=== PATIENT | female | born 1990 | race Hispanic/Latino ===

== ENCOUNTER 2018-02-25 21:34 | Emergency (ER) | payer OTHER ==
[2018-02-25 21:54] VITALS: BP 121/74; PULSE 52; RESP 14; TEMP 98; O2SAT 100
[2018-02-25 22:45] LABS: BASO # 0.1 K/uL (0.0-0.2); BASO % 0.7 % (0.0-2.0); EOS # 0.1 K/uL (0.0-0.7); HEMOGLOBIN 12.1 g/dL (12.0-16.0); LYMPH # 3.2 K/uL (1.0-4.3); LYMPH % 31.6 % (20.0-40.0); MEAN CORPUSCULAR HEMOGLOBIN 29.9 pg (27.0-31.0); MEAN CORPUSCULAR HGB CONC 33.2 g/dL (33.0-37.0); MEAN PLATELET VOLUME 9.8 fl (7.2-11.7); MONO # 0.8 K/uL (0.0-0.8); MONO % 7.8 % (0.0-10.0); NEUT % 58.9 % (50.0-75.0); NRBC % 0.1 % (0.0-0.0); RBC 4.04 Mil/uL (3.80-5.20); RED CELL DISTRIBUTION WIDTH 12.6 % (11.5-14.5); WHITE BLOOD COUNT 10.2 K/uL (4.8-10.8)
--- NOTE | 2018-02-25 22:55 | ED PDOC ---
HPI: Headache Time Seen by Provider: 02/25/18 22:06 Chief Complaint (Nursing): Headache Chief Complaint (Provider): Headache History Per: Patient History/Exam Limitations: no limitations Onset/Duration Of Symptoms: Days (x4) Current Symptoms Are (Timing): Still Present Additional Complaint(s): 27 y/o female with a PMHx of Hypothyroidism presents to the ED complaining of headache, onset four days. Patient also reports an acute sense of dizziness one hour ago after eating. Patient is also complaining of numbness to the left arm and leg. Denies trough walking, taking and chewing. PMD: Wai Past Medical History Reviewed: Historical Data, Nursing Documentation, Vital Signs Vital Signs: Last Vital Signs Temp 98 F 02/25/18 21:50 Pulse 52 L 02/25/18 21:50 Resp 14 02/25/18 21:50 BP 121/74 02/25/18 21:50 Pulse Ox 100 02/25/18 21:50 - Medical History PMH: Hypothyroidism - Surgical History Surgical History: Tonsillectomy - Family History Family History: States: Other Other Family History: Lupus (mother) - Home Medications Home Medications: Ambulatory Orders Medication Instructions Recorded Levothyroxine [Synthroid] 02/25/18 - Allergies Allergies/Adverse Reactions: Allergies Allergy/AdvReac Type Severity Reaction Status Date / Time No Known Allergies Allergy Verified 02/25/18 21:50 Review of Systems ROS Statement: Except As Marked, All Systems Reviewed And Found Negative Neurological: Positive for: Numbness (to the left arm and leg), Headache, Dizziness Physical Exam - Reviewed Nursing Documentation Reviewed: Yes Vital Signs Reviewed: Yes - Physical Exam Appears: Positive for: No Acute Distress Head Exam: Positive for: ATRAUMATIC, NORMOCEPHALIC Skin: Positive for: Normal Color, Warm, Dry Eye Exam: Positive for: Normal appearance, EOMI, PERRL Neck: Positive for: Normal, Painless ROM Cardiovascular/Chest: Positive for: Regular Rate, Rhythm. Negative for: Murmur Respiratory: Positive for: Normal Breath Sounds. Negative for: Respiratory Distress Gastrointestinal/Abdominal: Positive for: Normal Exam, Soft. Negative for: Tenderness Back: Positive for: Normal Inspection. Negative for: L CVA Tenderness, R CVA Tenderness, Vertebral Tenderness Extremity: Positive for: Normal ROM. Negative for: Pedal Edema, Deformity Neurologic/Psych: Positive for: Alert, Oriented (x3). Negative for: Motor/ Sensory Deficits - Laboratory Results Result Diagrams: 02/25/18 22:42 02/25/18 22:42 - ECG O2 Sat by Pulse Oximetry: 100 (RA) Pulse Ox Interpretation: Normal Medical Decision Making Medical Decision Making: Time: 2241 Impression: 27 y/o female with no PMHx presenting with non-specific dizziness Plan: -- CT Head w/o Contrast -- EKG -- CMP -- T3 -- T4 -- Thyroid Stimulation -- ED Urine -- ED Urine Dipstick -- CBC with differentials -- ESR -- Heplock Insertion Time: 00:01 CT Head FINDINGS: Brain: Minimal atrophy. No intracranial hemorrhage. No mass. No definite edema. Right cerebellar tonsillar ectopia, up to 0.9 cm (sagittal image 33). Ventricles: No hydrocephalus. Bones/joints: No acute fracture. Sinuses: No acute sinusitis. Mastoid air cells: No significant effusion. Orbits: Unremarkable as visualized. Soft tissues: Unremarkable. IMPRESSION: 1. No definite acute intracranial abnormality. 2. Chiari malformation. Time: 00:25 Patient's labs were reviewed and show no clinically singifcant abnormality. Diagnosis is Chiari malformation. Patient was made aware of diagnosis and what it means. Patient will follow up with neurologist and PMD. Scribe Attestation: Documented by Mic Swanson and Franky Salamanca acting as a scribe for Dr. Shaji Iglesias MD. Provider Scribe Attestation: All medical record entries made by the Scribe were at my direction and personally dictated by me. I have reviewed the chart and agree that the record accurately reflects my personal performance of the history, physical exam, medical decision making, and the department course for this patient. I have also personally directed, reviewed, and agree with the discharge instructions and disposition. Disposition - Clinical Impression Clinical Impression: Chiari malformation - Patient ED Disposition Is Patient to be Admitted: No - Disposition Referrals: Noel Robledo MD [Staff Provider] - Disposition: Routine/Home Disposition Time: 00:25 Condition: STABLE Additional Instructions: CHATA KINCAID, thank you for letting us take care of you today. Your provider was Shaji Iglesias MD and you were treated for HEADACHE, LIGHTHEADEDNESS. The emergency medical care you received today was directed at your acute symptoms. If you were prescribed any medication, please fill it and take as directed. It may take several days for your symptoms to resolve. Return to the Emergency Department if your symptoms worsen, do not improve, or if you have any other problems. Please contact your doctor or call one of the physicians/clinics you have been referred to that are listed on the Patient Visit Information form that is included in your discharge packet. Bring any paperwork you were given at discharge with you along with any medications you are taking to your follow up visit. Our treatment cannot replace ongoing medical care by a primary care provider outside of the emergency department. Thank you for allowing the [facility] team to be part of your care today. If you had an X-Ray or CT scan: A Radiologist will review the ED reading if any change in treatment is needed we will contact you. If you had a blood, urine, or wound culture: It will take several days for the results, if any change in treatment is needed we will contact you. If you had an STI test: It will take 48 hours for the results. Please call after 1 week if you have not heard back. Instructions: Chiari Malformation Forms: [employer] ([place])
[2018-02-25 23:02] LABS: ALB/GLOB RATIO 1.3 (1.0-2.1); ALT/SGPT 29 U/L (9-52); AST/SGOT 25 U/L (14-36); BLOOD UREA NITROGEN 6 mg/dl (7-17); CALCIUM 9.1 mg/dL (8.4-10.2); GFR AFRICAN-AMERICAN > 60; GFR NON-AFRICAN AMERICAN > 60
[2018-02-25 23:10] LABS: T4 14.7 ug/dl (5.5-11.0)
[2018-02-25 23:23] LABS: T3 1.74 nmol/L (1.49-2.60)
--- NOTE | 2018-02-26 07:19 | CARD ---
APPROVED REPORT Date of service: 02/25/2018 <Conclusion> Sinus bradycardia with sinus arrhythmia Otherwise normal ECG
--- NOTE | 2018-02-26 11:12 | CT ---
Date of service: 02/25/2018 PROCEDURE: CT HEAD WITHOUT CONTRAST. HISTORY: headache COMPARISON: None available. TECHNIQUE: Axial computed tomography images were obtained through the head/brain without intravenous contrast. Radiation dose: Total exam DLP = 818.78 mGy-cm. This CT exam was performed using one or more of the following dose reduction techniques: Automated exposure control, adjustment of the mA and/or kV according to patient size, and/or use of iterative reconstruction technique. FINDINGS: HEMORRHAGE: No intracranial hemorrhage. BRAIN: Normal peres-white matter differentiation and density are appreciated throughout the cerebrum and cerebellum with the brainstem appearing unremarkable as well. There is no mass effect. There is no suspicious extra-axial fluid collection and the midline brain anatomy appears diffusely unremarkable. VENTRICLES: Unremarkable. No hydrocephalus. CALVARIUM: Unremarkable. PARANASAL SINUSES: Unremarkable as visualized. No significant inflammatory changes. MASTOID AIR CELLS: Unremarkable as visualized. No inflammatory changes. OTHER FINDINGS: None. IMPRESSION: Normal CT of the Head.
== END 2018-02-26 00:21 | disposition home or self-care (01) ==
LOC: H.ER 21:34
DX: Q07.00 Arnold-Chiari syndrome without spina bifida or hydrocephalus (principal); E03.9 Hypothyroidism, unspecified